=== PATIENT | male | born 1950 | race Caucasian/White ===

== ENCOUNTER 2022-08-31 18:07 | Inpatient (IN) | payer OTHER, SELFPAY ==
[2022-08-31] VITALS (24 sets, daily range): BP systolic 127–202; BP diastolic 64–91; PULSE 66–97; RESP 12–165; TEMP 36.6–36.7; O2SAT 93–99; BMI 26.6
--- NOTE | 2022-08-31 18:16 | DI.RAD.S_ITS ---
PROCEDURE: XR CHEST 1V INDICATIONS: chest pain TECHNIQUE: One view of the chest was acquired. COMPARISON: [facility], CT, CT HEAD/BRAIN WO CON, 08/31/2022, 18:22. FINDINGS: Surgical changes and devices: None. Lungs and pleura: On this semiupright portable chest examination, no large pneumothorax or large pleural effusions are seen. No focal infiltrates are seen. Mediastinum: Mediastinal contours appear normal. Heart size is normal. Bones and chest wall: No suspicious bony lesions. Age-appropriate bony degenerative changes are seen. Overlying soft tissues appear unremarkable. IMPRESSION: Portable chest within normal limits. Dictated by: Rey Ochoa M.D. on 08/31/2022 at 17:55 Approved by: Rey Ochoa M.D. on 08/31/2022 at 17:56
--- NOTE | 2022-08-31 18:17 | DI.CT.S_ITS ---
PROCEDURE: CT HEAD/BRAIN WO CON INDICATIONS: weakness TECHNIQUE: Noncontrast 4.5 mm thick angled axial sections acquired from the foramen magnum to the vertex, with coronal and sagittal reformats. For radiation dose reduction, the following was used: automated exposure control, adjustment of mA and/or kV according to patient size. COMPARISON: [facility], CR, XR CHEST 1V, 08/31/2022, 18:15. [facility], MR, MR BRAIN WO CON, 01/04/2015, 10:27. FINDINGS: Image quality: Excellent. CSF spaces: Basal cisterns are patent. No extra-axial fluid collections. The lateral ventricles are stable with ex vacuo dilatation of the right lateral ventricle. Brain: There is a remote right MCA territory infarction seen, with volume loss and encephalomalacia. No intracranial bleeds or masses. There is cerebral volume loss for age, with resultant ventricular and sulcal prominence. There are periventricular and deep white matter chronic small vessel ischemic changes. There is intracranial internal carotid artery atherosclerosis. Skull and face: Calvarium and visualized facial bones appear intact, without suspicious lesions. Sinuses: Scattered areas of moderate mucosal thickening can be seen within the paranasal sinuses. No abnormal fluid is seen within the mastoid air cells. IMPRESSION: No ale acute head CT abnormality is seen. There is a remote right MCA territory infarction seen, with volume loss and encephalomalacia, with associated ex vacuo dilatation of the right lateral ventricle. If there is strong clinical suspicion for an acute stroke, please consider a brain MRI for further evaluation, as it is more sensitive (assuming that there is no contraindication to MRI). Dictated by: Rey Ochoa M.D. on 08/31/2022 at 17:56 Approved by: Rey Ochoa M.D. on 08/31/2022 at 17:58
[2022-08-31 18:34] LABS: Add Manual Diff / Slide Review NO; Basophils Absolute Auto 100 /uL (0-100); Basophils Percent Auto 0.6 % (0-2); Eosinophils Absolute Auto 100 /uL (0-450); Eosinophils Percent Auto 1.2 % (2-4); Hematocrit 44.1 % (41-53); Lymphocytes Absolute Auto 2800 /uL (1100-4500); Lymphocytes Percent Auto 29.7 % (25-40); Mean Corpuscular HGB Conc 34.1 % (30-36); Mean Corpuscular Hemoglobin 30.3 PG (26-34); Mean Corpuscular Volume 88.8 fL (80-100); Monocytes Absolute Auto 1000 /uL (0-900); Monocytes Percent Auto 10.2 % (3-14); Neutrophils Absolute Auto 5500 /uL (1500-7000); Neutrophils Percent Auto 58.3 % (50-75); Platelet Count 226 X10^3/uL (150-400); Prothrombin Time 11.9 SECONDS (10.1-12.7); Red Blood Cell Count 4.97 X10^6/uL (4.5-5.9); Red Cell Distribution Width 14.3 % (11.6-14.8); White Blood Cell Count 9.3 X10^3/uL (4.5-11.0)
[2022-08-31 18:36] LABS: PTT Partial Thromboplastin Tim 37 SECONDS (26-36)
[2022-08-31 18:42] LABS: Alanine Aminotransferase 23 IU/L (<50); Albumin 4.7 g/dL (3.5-5.0); Albumin Globulin Ratio 1.6 (1.0-2.8); Alkaline Phosphatase 93 U/L (38-126); Aspartate Aminotransferase 54 IU/L (17-59); Bilirubin Total 0.6 mg/dL (0.2-1.3); Blood Urea Nitrogen 13 mg/dL (9-20); Calcium 9.1 mg/dL (8.4-10.2); Carbon Dioxide 19 mmol/L (22-32); Chloride 106 mmol/L (98-107); Creatine Kinase 195 U/L (55-170); Estimated Glomerular Filt Rate > 60 mL/min (>60); Glucose 88 mg/dL (80-110); HEMOLYSIS < 15 (0-50); Lipase 74 U/L (23-300); Potassium 3.6 mmol/L (3.4-5.1); Sodium 139 mmol/L (137-145); Total Protein 7.7 g/dL (6.3-8.2)
--- NOTE | 2022-08-31 18:44 | ED.WEAKNESS ---
HPI - Weakness General Chief complaint: Weakness Stated complaint: sudden onset weakness, unable to stand, weakness Time Seen by Provider: 08/31/22 18:44 Source: patient Mode of arrival: Wheelchair Limitations: no limitations History of Present Illness HPI Narrative: This is a 73-year-old male with history of prior stroke with left-sided hand and lower extremity deficits. Hypertension, dyslipidemia, known right bundle-branch block and PMR on prednisone 1 mg daily and prior prostatectomy in 2005. Patient states he started feeling weak in both legs little bit yesterday went to sleep and woke up with his right hand feeling numb little bit weak he states it never went away and has continued to not work quite as well throughout the day. He states he has been walking throughout the day but a little bit more tentative. He states he is noticed that he is just felt weak in both legs. He notes his right leg is his strong or dominantly after his stroke 20 years ago. He denies any numbness or tingling in that leg. Denies headache, denies vision changes. No facial droop. No difficulty with speech. No fevers or chills. No chest pain, shortness of breath, no nausea or vomiting no issues with bowel movements or urination. No vertigo symptoms. Patient states that he normally takes an aspirin 81 mg daily he had been decreased from 06/17 about a year ago by his physician. He took 650 mg total of aspirin today at noon. He is on lovastatin, lisinopril been on 1 mg of prednisone daily for the past month for his PMR. Patient does state he has a known 100% occluded right carotid. No tobacco, half alcoholic beer daily, no illicit. Patient's primary care just retired but he is seen through [facility] and [place]. Related Data Home Medications Medication Instructions Recorded Confirmed aspirin 325 mg tablet,delayed 325 mg PO QDAY #0 tabs 11/07/15 release lisinopril 5 mg tablet 5 mg PO QDAY #30 tabs 11/07/15 lovastatin 10 mg tablet 10 mg ##0 11/07/15 Previous Rx's Medication Instructions Recorded doxycycline hyclate 100 mg capsule 100 mg PO Q12H #20 caps 11/07/15 hydrocodone 5 mg-acetaminophen 325 0 tab PO Q6HP PRN #15 tabs 11/07/15 mg tablet Allergies Allergy/AdvReac Type Severity Reaction Status Date / Time Sulfa (Sulfonamide Allergy Mild Verified 08/31/22 18:19 Antibiotics) [SULFA (SULFONAMIDE ANTIBIOTICS)] terbinafine [TERBINAFINE] Allergy Mild Verified 08/31/22 18:19 Review of Systems Review of Systems ROS Unobtainable: All systems reviewed & are unremarkable except as noted in HPI and below Patient History Medical History (Updated 08/31/22 @ 21:23 by JASSON Silva) History of cerebrovascular accident (CVA) with residual deficit Hyperlipemia Hypertension PMR (polymyalgia rheumatica) Surgical History (Updated 08/31/22 @ 21:23 by JASSON Silva) History of prostatectomy Family History (Updated 08/31/22 @ 23:01 by JASSON Silva) Father Rheumatoid arthritis Mother Diabetes mellitus Social History (Updated 08/31/22 @ 23:02 by JASSON Silva) marital status: household members: spouse lives independently: Yes caregiver/support person: No housing: house current occupational exposures/hazards: No Smoking Status: Never smoker alcohol intake: current substance use type: does not use Smoking Status: Unknown if ever smoked alcohol intake frequency: holidays/special occasions only Substance Use Type: does not use Exam Narrative Exam Narrative: GEN: well nourished, well appearing male, alert and oriented x 3, patient appears to be in mild distress. HEENT: Atraumatic, pupils are equal round reactive to light, extraocular movements are intact, nares are clear. Throat is clear without any exudates, erythema, tonsillar enlargement or uvular deviation, no facial droop. HEART: Regular rate and rhythm without murmur, clicks, rubs. Pulses are equal in upper and lower extremities LUNGS:Lungs clear to auscultation, no wheezes, rales, crackles, chest moves symmetrically ABD:bowel sounds normal, soft, non-tender, no guarding, rebound, rigidity, no masses noted, no hepatosplenomegaly :No CVA tenderness MSCL: Non-tender, no muscle atrophy, full range of motion. Patient has some slight drift actually more in the left than the right patient states this is normal. I states he can only hold all his left fingers together. NEURO:CN 2-12 intact, sensation normal, finger nose finger test normal left slight mild difficulty on the right, heel martin test more difficult with right to left leg SKIN: No rash, erythema or other skin changes Initial Vital Signs Initial Vital Signs: Vital Signs Temperature 97.8 F 08/31/22 18:08 Pulse Rate 96 H 08/31/22 18:08 Respiratory Rate 165 H 08/31/22 18:08 Blood Pressure 202/91 H 08/31/22 18:08 Pulse Oximetry 98 08/31/22 18:08 Oxygen Delivery Method Room Air 08/31/22 18:08 Scores NIH Stroke Scale Level of Conciousness: Alert, keenly responsive Ask month/age: Answers both questions correctly. Open/close eyes, close hand: Performs both tasks correctly Best gaze horizontal: Normal Visual horn: No visual loss Facial palsy: Normal symetrical movement Left arm drift: Drifts down, not to bed Right arm drift: No drift for full 10 sec Left leg drift: No drift for full 5 sec Right leg drift: No drift for full 5 sec Limb ataxia: Present in two limbs Sensory on face/arms/legs: Normal, no sensory loss Best language: No aphasia, normal Dysarthria: Normal Extinction or inattention: No abnormality Total NIH Stroke scale score: 3 Course Orders Ordered: ED Orders 08/31/22 19:02 CT angio head and neck Stat 08/31/22 20:52 Consult to Discharge Planning Routine Consult to Occupational Therapy Evaluate & Treat Consult to Physical Therapy Evaluate & Treat Consult to Speech Therapy Evaluate & Treat MR stroke Stat Education, smoking cessation ONGOING 09/01/22 05:00 Basic Metabolic Panel DAILY Complete Blood Count AUTO DIFF DAILY 09/02/22 05:00 Basic Metabolic Panel DAILY Complete Blood Count AUTO DIFF DAILY Acetaminophen (Acetaminophen 325 Mg Tablet) 650 mg PO Q6H PRN PRN Reason: Fever/Mild Pain (1-3) Hydrocodone Bitart/Acetaminophen (Hydrocodone/Acet 5/325 Tablet) 1 tab PO Q4H PRN PRN Reason: Pain, Moderate (4-10 Aspirin (Aspirin Ec 81 Mg Tablet) 81 mg PO DAILY ZOE Atorvastatin Calcium (Atorvastatin 20 Mg Tablet) 80 mg PO BEDTIME ZOE Last Admin: 08/31/22 21:36 Dose: 80 mg Documented By: TEQUILA Calcium Carbonate (Calcium Carbonate 500 Mg Tab) 1,000 mg PO Q4HR PRN PRN Reason: Dyspepsia Clopidogrel Bisulfate (Clopidogrel 75 Mg Tablet) 75 mg PO DAILY [facility] Enoxaparin Sodium (Enoxaparin 40 Mg/0.4 Ml Syringe) 40 mg SUBCUT DAILY [facility] Labetalol HCl (Labetalol 20 Mg/4 Ml Syringe) 5 mg IV PRN PRN; Protocol PRN Reason: Hypertension Lisinopril (Lisinopril 5 Mg Tablet) 5 mg PO DAILY [facility] Naloxone HCl (Naloxone 0.4 Mg/Ml Vial) 0.2 mg IV Q2MIN PRN PRN Reason: Opiate Reversal Sennosides (Sennosides 8.6 Mg Tablet) 17.2 mg PO BEDTIME [facility] Discontinued Medications Labetalol HCl (Labetalol 20 Mg/4 Ml Syringe) 10 mg IV NOW ONE; Protocol Stop: 08/31/22 19:04 Last Admin: 08/31/22 19:14 Dose: 10 mg Documented By: TEQUILA Vital Signs Vital signs: Vital Signs - 8 hr 08/31/22 20:00 08/31/22 20:01 08/31/22 20:01 Pulse Rate 74 75 Respiratory Rate 17 23 Blood Pressure 171/81 H Pulse Oximetry 98 98 Oxygen Delivery Method Room Air Room Air 08/31/22 20:16 08/31/22 20:16 08/31/22 20:30 Pulse Rate 80 Respiratory Rate Blood Pressure 193/88 H 163/75 H Pulse Oximetry 97 Oxygen Delivery Method Room Air 08/31/22 20:30 08/31/22 20:30 08/31/22 20:45 Pulse Rate 73 97 H Respiratory Rate Blood Pressure 163/75 H 167/74 H Pulse Oximetry 97 Oxygen Delivery Method 08/31/22 20:45 Pulse Rate 66 Respiratory Rate 13 Blood Pressure Pulse Oximetry 97 Oxygen Delivery Method Room Air MDM - Weakness Lab Data 08/31/22 18:13 08/31/22 18:13 Labs: Lab Results 08/31/22 08/31/22 08/31/22 Range/Units 18:13 18:13 18:13 WBC 9.3 (4.5-11.0) X10^3/uL RBC 4.97 (4.5-5.9) X10^6/uL Hgb 15.0 (13.5-17.5) g/dL Hct 44.1 (41-53) % MCV 88.8 (80-100) fL MCH 30.3 (26-34) PG MCHC 34.1 (30-36) % RDW 14.3 (11.6-14.8) % Plt Count 226 (150-400) X10^3/uL Neut % (Auto) 58.3 (50-75) % Lymph % (Auto) 29.7 (25-40) % Douglas % (Auto) 10.2 (3-14) % Eos % (Auto) 1.2 L (2-4) % Baso % (Auto) 0.6 (0-2) % Neut # (Auto) 5500 (4206-8446) /uL Lymph # (Auto) 2800 (2043-7772) /uL Douglas # (Auto) 1000 H (0-900) /uL Eos # (Auto) 100 (0-450) /uL Baso # (Auto) 100 (0-100) /uL PT 11.9 (10.1-12.7) SECONDS INR 1.0 (0.9-1.3) APTT 37 H (26-36) SECONDS Sodium 139 (137-145) mmol/L Potassium 3.6 (3.4-5.1) mmol/L Chloride 106 (98-107) mmol/L Carbon Dioxide 19 L (22-32) mmol/L BUN 13 (9-20) mg/dL Creatinine 0.93 (0.66-1.25) mg/dL Estimated GFR > 60 (>60) mL/min BUN/Creatinine Ratio 14.0 (6-22) Glucose 88 (80-110) mg/dL Calcium 9.1 (8.4-10.2) mg/dL Magnesium 2.0 (1.6-2.3) mg/dL Total Bilirubin 0.6 (0.2-1.3) mg/dL AST 54 (17-59) IU/L ALT 23 (<50) IU/L Alkaline Phosphatase 93 (38-126) U/L Total Creatine Kinase 195 H (55-170) U/L CK-MB (CK-2) TNP CK-MB (CK-2) Rel Index TNP Troponin I < 0.012 (0.01-0.034) ng/mL NT-Pro-B Natriuret Pep (<125) pg/mL Total Protein 7.7 (6.3-8.2) g/dL Albumin 4.7 (3.5-5.0) g/dL Globulin 3.0 (1.7-4.1) g/dL Albumin/Globulin Ratio 1.6 (1.0-2.8) Lipase 74 (23-300) U/L TSH (0.47-4.68) uIU/mL 08/31/22 08/31/22 08/31/22 Range/Units 18:13 18:13 18:13 WBC (4.5-11.0) X10^3/uL RBC (4.5-5.9) X10^6/uL Hgb (13.5-17.5) g/dL Hct (41-53) % MCV (80-100) fL MCH (26-34) PG MCHC (30-36) % RDW (11.6-14.8) % Plt Count (150-400) X10^3/uL Neut % (Auto) (50-75) % Lymph % (Auto) (25-40) % Douglas % (Auto) (3-14) % Eos % (Auto) (2-4) % Baso % (Auto) (0-2) % Neut # (Auto) (7033-3711) /uL Lymph # (Auto) (2514-8278) /uL Douglas # (Auto) (0-900) /uL Eos # (Auto) (0-450) /uL Baso # (Auto) (0-100) /uL PT (10.1-12.7) SECONDS INR (0.9-1.3) APTT (26-36) SECONDS Sodium (137-145) mmol/L Potassium (3.4-5.1) mmol/L Chloride (98-107) mmol/L Carbon Dioxide (22-32) mmol/L BUN (9-20) mg/dL Creatinine (0.66-1.25) mg/dL Estimated GFR (>60) mL/min BUN/Creatinine Ratio (6-22) Glucose (80-110) mg/dL Calcium (8.4-10.2) mg/dL Magnesium 2.1 (1.6-2.3) mg/dL Total Bilirubin (0.2-1.3) mg/dL AST (17-59) IU/L ALT (<50) IU/L Alkaline Phosphatase (38-126) U/L Total Creatine Kinase (55-170) U/L CK-MB (CK-2) CK-MB (CK-2) Rel Index Troponin I (0.01-0.034) ng/mL NT-Pro-B Natriuret Pep 121 (<125) pg/mL Total Protein (6.3-8.2) g/dL Albumin (3.5-5.0) g/dL Globulin (1.7-4.1) g/dL Albumin/Globulin Ratio (1.0-2.8) Lipase (23-300) U/L TSH 2.24 (0.47-4.68) uIU/mL Point of Care Testing Glucose POC [address] scan - head: Radiologist Impression: [address] [address] [address] Scan Report Signed Patient: Joselyn Chandler MR#: [id number] : 1950 Acct:[id number] Age/Sex: 72 / M Date of Service: 08/31/22 Loc: ED Accession Number: [id number] ?? Procedure: CT head/brain wo con Ordering Provider: Keisha Figueroa D.O. PROCEDURE:? CT HEAD/BRAIN WO CON ? INDICATIONS:? weakness ? TECHNIQUE:? Noncontrast 4.5 mm thick angled axial sections acquired from the foramen magnum to the vertex, with coronal and sagittal reformats.? For radiation dose reduction, the following was used:? automated exposure control, adjustment of mA and/or kV according to patient size.? ? COMPARISON:? [facility], CR, XR CHEST 1V, 08/31/2022, 18:15.? [facility], MR, MR BRAIN WO CON, 01/04/2015, 10:27. ? FINDINGS:? Image quality:? Excellent.? ? CSF spaces:? Basal cisterns are patent.? No extra-axial fluid collections.? The lateral ventricles are stable with ex vacuo dilatation of the right lateral ventricle. ? Brain:? There is a remote right MCA territory infarction seen, with volume loss and encephalomalacia.? ? No intracranial bleeds or masses.? There is cerebral volume loss for age, with resultant ventricular and sulcal prominence.? There are periventricular and deep white matter chronic small vessel ischemic changes.? There is intracranial internal carotid artery atherosclerosis.? ? Skull and face:? Calvarium and visualized facial bones appear intact, without suspicious lesions.? ? Sinuses:? Scattered areas of moderate mucosal thickening can be seen within the paranasal sinuses. No abnormal fluid is seen within the mastoid air cells. ? ? IMPRESSION:? No ale acute head CT abnormality is seen. ? There is a remote right MCA territory infarction seen, with volume loss and encephalomalacia, with associated ex vacuo dilatation of the right lateral ventricle. ? If there is strong clinical suspicion for an acute stroke, please consider a brain MRI for further evaluation, as it is more sensitive (assuming that there is no contraindication to MRI). ? ? Dictated by: Rey Ochoa M.D. on 08/31/2022 at 17:56 ? ? Approved by: Rey Ochoa M.D. on 08/31/2022 at 17:58?? Chest x-ray: Radiologist Impression: [address] [address] XRay Report Signed Patient: Joselyn Chandler MR#: [id number] : 1950 Acct:[id number] Age/Sex: 72 / M Date of Service: 08/31/22 Loc: ED Accession Number: [id number] ?? Procedure: XR chest 1V Ordering Provider: Keisha Figueroa D.O. PROCEDURE:? XR CHEST 1V ? INDICATIONS:? chest pain ? TECHNIQUE:? One view of the chest was acquired.? ? COMPARISON:? [facility], CT, CT HEAD/BRAIN WO CON, 08/31/2022, 18:22. ? FINDINGS:? ? Surgical changes and devices:? None.? ? Lungs and pleura:? On this semiupright portable chest examination, no large pneumothorax or large pleural effusions are seen.? No focal infiltrates are seen.? ? Mediastinum:? Mediastinal contours appear normal.? Heart size is normal.? ? Bones and chest wall:? No suspicious bony lesions.? Age-appropriate bony degenerative changes are seen. ? Overlying soft tissues appear unremarkable.? IMPRESSION:? ? Portable chest within normal limits. ? ? ? Dictated by: Rey Ochoa M.D. on 08/31/2022 at 17:55 ? ? Approved by: Rey Ochoa M.D. on 08/31/2022 at 17:56?? CTA - brain/neck: Radiologist Impression: [address] [address] [address] Scan Report Signed Patient: Joselyn Chandler MR#: [id number] : 1950 Acct:[id number] Age/Sex: 72 / M Date of Service: 08/31/22 Loc: ED Accession Number: [id number] ?? Procedure: CT angio head and neck Ordering Provider: Keisha Figueroa D.O. PROCEDURE:? CT ANGIO HEAD AND NECK ? INDICATIONS:? new right arm weakness, leg weakness ? TECHNIQUE:? ? After the administration of intravenous contrast, 1 mm thick sections acquired from the aortic arch through the [place] of [place].? Post-contrast 4.5 mm thick sections then re-acquired from the foramen magnum to the vertex.? 3-dimensional tzxcdhr-fqagwtuku-gbuycswbgy (MIP) and/or volume rendering reformats were acquired of the central intracranial vasculature and neck separately. For radiation dose reduction, the following was used:? automated exposure control, adjustment of mA and/or kV according to patient size.? ? COMPARISON:? [facility], CT, CT HEAD/BRAIN WO CON, 08/31/2022, 18:22. ? FINDINGS:? Image quality:? Good ? Anterior circulation: ICAs:? There is occlusion of the right ICA, with reconstitution at the [id number].? There are atherosclerotic calcifications, [id number] in the cavernous segments. ACAs:? Patent.? The left SHARON slightly smaller than the right. MCAs:? The left MCA branches are patent where visualized in the proximal aspect.? The right MCA proximal regions are patent, but smaller than the left. AComm: No aneurysm Venous sinuses: patent ? Posterior circulation: Dominance: Equal Vertebral arteries:? Left vertebral calcifications, [id number]. Basilar artery: Unremarkable PComms: No aneurysm fireman helper: Unremarkable ? NECK ANGIOGRAPHY Aortic arch and subclavian arteries: Normal flow, no aneurysm. CCAs: No stenosis, occlusion, or aneurysm. ICA origins (by NASCET criteria): No hemodynamically significant narrowing.? There is about 50% narrowing at the left ICA origin. ICAs:? The right cervical ICA is occluded. ECAs: Origins are patent. Vertebral arteries:? Moderate narrowing of the right vertebral artery origin. ? Soft tissues: No significant mass, aneurysm, or lymphadenopathy Lung apices: No pneumothorax Bones:? Degenerative changes are present.? Postsurgical sinus changes. ? ? IMPRESSION:? The right ICA is occluded at the cervical segment.? There is reconstitution of contrast at the kfiyld-vk-Ewglze.? A 2015 MRA report mentions also right ICA occlusion at the level of the carotid bulb.? There is evidence of an old infarction in the right MCA territory.? The right MCA is smaller than the left, also likely chronic.? Consider MRI to evaluate for any acute components. ? Other findings as above. ? Any quantitative measurements of stenosis were performed using NASCET criteria.? ? ? Dictated by: Nico Olivares M.D. on 08/31/2022 at 19:55 ? ? Approved by: Nico Olivares M.D. on 08/31/2022 at 20:06?? ECG Data Attestation: I personally reviewed and interpreted this ECG as follows: Prior ECG tracings: not available for review Interpretation: In his rhythm frequent PVCs. Rate 85 [place] 182 QRS of 142 QTC of 504. Right bundle-branch block. No priors for comparison. Patient personally notes he has been told he has a right bundle-branch in the past. MDM Narrative Medical decision making narrative: This is a 72-year-old male who comes to the emergency department with complaint of did of weakness and right hand numbness. Patient states he started feeling weak yesterday but woke up with right hand numbness and weakness he also notes he is had a prior stroke with left-sided deficits his right lower extremity is typically dominant but he is felt weak in general and had difficulty with walking. Suspect patient is having right-sided symptoms but not appreciating as much in his lower extremity is its normally compensating for his left. Patient does have a little bit of left-sided drift we states this is normal. On the right patient has a little bit a taxi with his finger and heel. Patient's CBC, coags, CMP, troponin show a total CK 195 in his to of 19. Initial head CT shows prior right MCA infarct, chest x-ray is negative. Patient is sent for CT angio, he had aspirin 650 mg at home so no additional was given. One dose of labetalol as a pressure was in the 200 range. Patient is not tPA candidate. Plan for CT angio shows Right occluded cervical segment with reconstitution at contrast [place] of [place]. Right 24 MRI report mentions right ICA at the level of the carotid bulb. Evidence of old fracture of the right MCA territory. Right MCA smaller than left also likely chronic. Suspect new stroke new stroke likely on the left. Spoke with Dr. Corey with stroke [facility], recommends MRI, usual workup, PT OT if stroke high-intensity statin such as atorvastatin rosuvastatin at higher dose, at this time would allow for blood pressure to be 220 until after MRI to see if there is actual stroke if 220 or above systolic can treat. Discussed with hospitalist, ELIZ Maki: Accepts for admission. Discharge Plan Departure Patient Disposition: Admitted as Observation Clinical Impression: CVA (cerebrovascular accident) Admit Date/Time: 08/31/22 20:52 Admit Provider: Joleen Maki
[2022-08-31 18:53] LABS: Troponin I < 0.012 ng/mL (0.01-0.034)
--- NOTE | 2022-08-31 19:02 | DI.CT.S_ITS ---
PROCEDURE: CT ANGIO HEAD AND NECK INDICATIONS: new right arm weakness, leg weakness TECHNIQUE: After the administration of intravenous contrast, 1 mm thick sections acquired from the aortic arch through the [place] of [place]. Post-contrast 4.5 mm thick sections then re-acquired from the foramen magnum to the vertex. 3-dimensional gngpbyy-nxuwuuoow-voxdxdgoze (MIP) and/or volume rendering reformats were acquired of the central intracranial vasculature and neck separately. For radiation dose reduction, the following was used: automated exposure control, adjustment of mA and/or kV according to patient size. COMPARISON: [facility], CT, CT HEAD/BRAIN WO CON, 08/31/2022, 18:22. FINDINGS: Image quality: Good Anterior circulation: ICAs: There is occlusion of the right ICA, with reconstitution at the bqgxbg-ra-Mrkekm. There are atherosclerotic calcifications, picp-ha-zqffbzqr in the cavernous segments. ACAs: Patent. The left SHARON slightly smaller than the right. MCAs: The left MCA branches are patent where visualized in the proximal aspect. The right MCA proximal regions are patent, but smaller than the left. AComm: No aneurysm Venous sinuses: patent Posterior circulation: Dominance: Equal Vertebral arteries: Left vertebral calcifications, [id number]-ibrfyttp. Basilar artery: Unremarkable PComms: No aneurysm inspector fibrous wallboard: Unremarkable NECK ANGIOGRAPHY Aortic arch and subclavian arteries: Normal flow, no aneurysm. CCAs: No stenosis, occlusion, or aneurysm. ICA origins (by NASCET criteria): No hemodynamically significant narrowing. There is about 50% narrowing at the left ICA origin. ICAs: The right cervical ICA is occluded. ECAs: Origins are patent. Vertebral arteries: Moderate narrowing of the right vertebral artery origin. Soft tissues: No significant mass, aneurysm, or lymphadenopathy Lung apices: No pneumothorax Bones: Degenerative changes are present. Postsurgical sinus changes. IMPRESSION: The right ICA is occluded at the cervical segment. There is reconstitution of contrast at the lkunfe-ea-Huwohx. A 2015 MRA report mentions also right ICA occlusion at the level of the carotid bulb. There is evidence of an old infarction in the right MCA territory. The right MCA is smaller than the left, also likely chronic. Consider MRI to evaluate for any acute components. Other findings as above. Any quantitative measurements of stenosis were performed using NASCET criteria. Dictated by: Nico Olivares M.D. on 08/31/2022 at 19:55 Approved by: Nico Olivares M.D. on 08/31/2022 at 20:06
[2022-08-31] MEDS: LABETALOL 20 MG/4 ML SYRINGE 10 MG IV (19:14)
--- NOTE | 2022-08-31 20:52 | DI.MRI.S_ITS ---
PROCEDURE: MR HEAD/BRAIN WO CON INDICATIONS: CVA TECHNIQUE: Non-contrast axial T1 spin echo, axial T2 fast spin echo, sagittal and axial FLAIR, coronal T2 fast spin echo, axial gradient echo, axial diffusion and ADC through the brain. COMPARISON: [facility], MR, MR ANGIO NECK W&WO CON, 01/11/2015, 7:06. [facility], MR, MR BRAIN WO CON, 01/04/2015, 10:27. [facility], MR, MR ANGIO HEAD WO CON, 01/04/2015, 10:27. [facility], CT, CT ANGIO HEAD AND NECK, 08/31/2022, 19:23. [facility], CT, CT HEAD/BRAIN WO CON, 08/31/2022, 18:22. FINDINGS: Image quality: Excellent. CSF spaces: Ventricles appear symmetric in size and shape. Basal cisterns are patent. No extra-axial fluid collections. Brain: Large area of old cerebral infarct in the right parietal lobe with encephalomalacia, gliosis and ex vacuo change. No intracranial bleeds or mass effects. There is cerebral volume loss for age. There are periventricular and deep white matter chronic small vessel ischemic changes. Brainstem appears normal. Diffusion-weighted images show no acute ischemic insults. There is absence of flow void in the right distal ICA consistent with occlusion, which was present on the prior exam. Skull and face: Calvarial bone marrow is normal in signal. Orbits are normal. Sinuses: Sinuses and mastoids are clear. IMPRESSION: 1. No acute intracranial abnormality. No findings to suggest acute cerebral ischemia. 2. Old right parietal infarct. 3. Chronic distal right ICA occlusion. Dictated by: Yariel Still M.D. on 09/01/2022 at 8:40 Approved by: Yariel Still M.D. on 09/01/2022 at 8:48
--- NOTE | 2022-08-31 20:59 | DI.ECHO.S_ITS ---
[facility] +---------+ : : [address] : : : : [id number] : : : : Phone: [phone]+ Echocardiogram Report + + :Name: YASSINE LOPEZ Study Date: 09/01/2022 Height: 68 in : :[facility] ReadingLocation: Weight: 175 lb : : Gender: Male BSA: 1.9 m2 : :: 1950 Age: 72 yrs BP: 129/58 mmHg: :Reason For Study: CVA : :Ordering Physician: Glynn, : :Sonia Performed By: Marielle Rossi : :Referring: SONIA HUGHES : + + Interpretation Summary Normal sinus rhythm with wide QRS complexes and frequent PVCs. Normal LV size and moderate concentric left ventricular hypertrophy. Normal wall motion and LV systolic function. Ejection fraction is 60-65%. Mildly thickened mitral valve leaflets and aortic valve leaflets. No significant regurgitation or stenosis. No evidence of PFO bsaed on color flow Doppler. Bubble study was not done. No source of embolism found. Procedure: A two-dimensional transthoracic echocardiogram with color flow and Doppler was performed. The study quality was technically adequate. There is no prior echocardiogram noted for this patient. The patient was in normal sinus rhythm during the exam. The patient had frequent PVCs during the exam. Left Ventricle: The left ventricle is normal in size. The ejection fraction is estimated to be 55-60%. Diastolic parameters suggest a relaxation abnormality of the left ventricle, consistent with probable normal filling pressures. Right Ventricle: The right ventricle is mildly dilated. The right ventricular systolic function is normal. Atria: The left atrial size is normal. Right atrial size is normal. There is no Doppler evidence for an interatrial shunt. Mitral Valve: The mitral valve is normal. There is no mitral valve stenosis. There is trace mitral regurgitation. Aortic Valve: The aortic valve is trileaflet. The aortic valve opens well. There is mild aortic valve sclerosis. There is no aortic valve stenosis. There is trace aortic regurgitation. Tricuspid Valve: The tricuspid valve is normal. There is no tricuspid stenosis. There is trace tricuspid regurgitation. Pulmonary artery pressures cannot be estimated because of the lack of a measurable TR jet velocity. Pulmonic Valve: The pulmonic valve leaflets are thin and pliable; valve motion is normal. There is no pulmonic valvular stenosis. There is trace pulmonic regurgitation. Great Vessels: The aortic root is normal size. The ascending aorta is normal in size. The pulmonary artery is normal size. The IVC is of normal diameter and collapses greater than 50% with a sniff. This suggests a low right atrial pressure of 3 mm Hg. Pericardium/ Pleura There is no pericardial effusion. There is no pleural effusion. MMode/2D Measurements & Calculations LVIDd: 4.5 cm LVOT diam: 1.9 cm LVIDs: 2.8 cm Ao root diam: 3.6 cm FS: 37.8 % asc Aorta Diam: 3.5 cm IVSd: 1.1 cm LVPWd: 1.4 cm LV naranjo. diameter/BSA (cm/m^2): 2.3 LV sys. diameter/BSA (cm/m^2): 1.4 LA A2 area: 18.0 cm2 RA long axis: 5.7 cm LA A4 area: 13.4 cm2 RA area: 14.9 cm2 LA length (vol): 5.2 cm RA vol: 32.8 ml LA vol: 39.1 ml RA : 17.0 ml/m2 LA vol index: 20.3 ml/m2 RVD1 (basal): 4.1 cm LVLs ap4: 5.4 cm LVLd ap2: 7.2 cm TAPSE_phl: 2.8 cm LVLs ap2: 5.7 cm Doppler Measurements & Calculations Ao V2 max: 142.5 cm/sec LVOT Max Fabio: 100.7 cm/sec Ao V2 mean: 102.5 cm/sec LV V1 max P.1 mmHg Ao max P.0 mmHg LV V1 VTI: 20.9 cm Ao mean P.0 mmHg SARAH(I,D): 1.8 cm2 Ao V2 VTI: 33.4 cm SARAH(V,D): 2.0 cm2 sev ratio: 0.63 SARAH indexed to BSA (cm^2/m^2): 0.92 MV E max fabio: 59.1 cm/sec PA V2 max: 100.0 cm/sec MV A max fabio: 84.8 cm/sec PA V2 mean: 66.6 cm/sec MV E/A: 0.70 PA mean P.0 mmHg Med Peak E' Fabio: 5.1 cm/sec PA pr(Accel): 37.6 mmHg E/E' med: 11.5 Lat Peak E' Fabio: 7.2 cm/sec E/E' lat: 8.3 E/e' average: 9.9 MV dec time: 0.23 sec SV(LVOT): 59.3 ml AV VR_phl: 0.71 SARAH(VTI)/BSA_phl: 0.92 Electronically signed by: Adriana Marsh M.D. on Reading Physician:09/01/2022 08:44 AM
--- NOTE | 2022-08-31 21:09 | P.HP_ITS ---
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 ?He denies any numbness or tingling in that leg, headache, denies vision changes, difficulty with swallowing.? No facial droop noted.? No difficulty with speech.? No fevers, body aches or chills, chest pain, shortness of breath, irregular heartbeats or palpitations, lower extremity edema, nausea, vomiting, abd pain, no issues with bowel movements or urination, vertigo symptoms, no recent illness injury or trauma. Patient reports that he is not had an echo/stess test more than 10 years, and last neck MRI/carotid Doppler was approximately 3 years ago. Patient states that he normally takes an aspirin 81 mg, lovastatin 10 mg, lisinopril 5 mg prednisone 1 mg. He took 650 mg total of aspirin today at noon. No tobacco, half alcoholic beer daily, no illicit.? Patient's primary care just retired but he is seen through [facility] and [place].? Patient initially presented to the ED PE 202/91 was given 10 mg labetalol area. Patient was evaluated by tele stroke recommended permissive SBP up too 220, pigment was not a candidate for tPA. On admit patient notes that right hand numbness/tingling continues BP 163/75, 97, 23, 97% on room air. Patient's laboratory findings are unremarkable the exception of bicarb 19, CK 195, initial troponin was negative. Chest x-ray n egative, EKG rate of 85 with a right bundle-branch block and frequent PVCs. Head CT no ale acute abnormalities it did demonstrate remote right MCA territorial infarct with volume loss and encephalomalacia, with associated ex vaco dilation of right lateral ventricle. And CTA H/N:The right ICA is occluded at the cervical segment.?Reconstitution of contrast at the ounfyo-fs-Pmlnel.? A 2015 MRA report mentions also right ICA occlusion at the level of the carotid bulb.? There is evidence of an old infarction in the right MCA territory.? The right MCA is smaller than the left, also likely chronic. Patient is admitted for observation for CVA. [facility] Medical History (Updated 08/31/22 @ 21:23 by JASSON Silva) History of cerebrovascular accident (CVA) with residual deficit Hyperlipemia Hypertension PMR (polymyalgia rheumatica) Surgical History (Updated 08/31/22 @ 21:23 by SPENCER Silva-VADIM) History of prostatectomy Family History (Updated 08/31/22 @ 23:01 by JASSON Silva) Father Rheumatoid arthritis Mother Diabetes mellitus Social History (Updated 08/31/22 @ 23:02 by JASSON Silva) marital status: household members: spouse lives independently: Yes caregiver/support person: No housing: house current occupational exposures/hazards: No Smoking Status: Never smoker alcohol intake: current substance use type: does not use Meds Home Medications and Allergies Home Medications Medication Instructions Recorded Confirmed Type aspirin 325 mg tablet,delayed 325 mg PO QDAY #0 tabs 11/07/15 History release doxycycline hyclate 100 mg capsule 100 mg PO Q12H #20 caps 11/07/15 Rx hydrocodone 5 mg-acetaminophen 325 0 tab PO Q6HP PRN #15 tabs 11/07/15 Rx mg tablet lisinopril 5 mg tablet 5 mg PO QDAY #30 tabs 11/07/15 History lovastatin 10 mg tablet 10 mg ##0 11/07/15 History Allergies Allergy/AdvReac Type Severity Reaction Status Date / Time Sulfa (Sulfonamide Allergy Mild Verified 08/31/22 18:19 Antibiotics) [SULFA (SULFONAMIDE ANTIBIOTICS)] terbinafine [TERBINAFINE] Allergy Mild Verified 08/31/22 18:19 Review of Systems Review of Systems Narrative: All 12 point systems reviewed with the patient and are negative except otherwise documented. Exam Vital Signs (past 8 hours): - 08/31/22 18:08 08/31/22 18:13 08/31/22 18:14 Temperature 97.8 F Pulse Rate 96 H 95 H 96 H Respiratory Rate 165 H Blood Pressure 202/91 H Pulse Oximetry 98 99 98 Oxygen Delivery Method Room Air Room Air Room Air 06/08/23 18:14 08/31/22 18:30 08/31/22 19:00 Temperature Pulse Rate 85 88 Respiratory Rate 29 H Blood Pressure 202/91 H Pulse Oximetry 96 93 Oxygen Delivery Method Room Air 08/31/22 19:07 08/31/22 19:07 08/31/22 19:16 Temperature Pulse Rate 82 86 Respiratory Rate 26 H 20 Blood Pressure 183/79 H Pulse Oximetry 98 98 Oxygen Delivery Method Room Air Room Air 08/31/22 19:16 08/31/22 19:24 08/31/22 19:24 Temperature Pulse Rate 74 Respiratory Rate 22 Blood Pressure 192/88 H 167/72 H Pulse Oximetry 97 Oxygen Delivery Method Room Air 08/31/22 19:37 08/31/22 19:43 08/31/22 19:43 Temperature Pulse Rate 79 74 Respiratory Rate Blood Pressure 178/84 H Pulse Oximetry 97 98 Oxygen Delivery Method Room Air Room Air 08/31/22 19:45 08/31/22 19:45 08/31/22 20:00 Temperature Pulse Rate 73 74 Respiratory Rate 18 17 Blood Pressure 168/83 H Pulse Oximetry 98 98 Oxygen Delivery Method Room Air Room Air 08/31/22 20:01 08/31/22 20:01 08/31/22 20:16 Temperature Pulse Rate 75 Respiratory Rate 23 Blood Pressure 171/81 H 193/88 H Pulse Oximetry 98 Oxygen Delivery Method Room Air 08/31/22 20:16 08/31/22 20:30 08/31/22 20:30 Temperature Pulse Rate 80 73 Respiratory Rate Blood Pressure 163/75 H Pulse Oximetry 97 97 Oxygen Delivery Method Room Air 08/31/22 20:30 Temperature Pulse Rate 97 H Respiratory Rate Blood Pressure 163/75 H Pulse Oximetry Oxygen Delivery Method Oxygen Delivery Method Room Air Narrative Exam Narrative: General: Patient is a well-developed, well-nourished in no distress at this time. HEENT: Normocephalic, atraumatic, extraocular muscles intact, oral pharynx is clear and mucous membranes are moist. Neck is supple and symmetric, trachea is midline, no adenopathy, no thyroid enlargement, nontender, no masses palpated. Negative for JVD Chest: Normal AP diameter and contour without kyphoscoliosis, no nasal flaring, retractions, ,tachypneic or labored breathing Lungs: Auscultation of all lung horn are clear without adventitious sounds, wheezes, rhonchi, or rales. Cardio: regular rate and rhythm without murmur, rubs, or gallops, no carotid bruit, no cardiac pulsations present. Abdomen: Soft nontender, negative for organomegaly, or masses. Bowel sounds are present in all 4 quadrants without guarding or rebound, no CVA tenderness. Musculoskeletal: tone are equal within normal limits, no deformity, crepitus, effusions, clubbing or edema present. Full range of motion intact radial and pedal pulses are normal. Skin: Warm dry and intact without rashes, ulcerations or petechiae. Noted urethral cyanotic of 2nd toe on right foot, good capillary refill, chronic-no changes. Neuro: Alert and orientated x3, moves all extremities, sensation to touch intact, no gross deficits noted of cranial nerves. NIH 3: Right finger/heel, limb ataxia x2, left arm drift down without hitting bed. Psych: Patient has a well-kept appearance, appropriate affect, mental status attitude thought context and judgment are appropriate for age. Objective Labs 08/31/22 18:13 08/31/22 18:13 Labs: Laboratory Results - last 24 hr 08/31/22 08/31/22 08/31/22 18:13 18:13 18:13 WBC 9.3 RBC 4.97 Hgb 15.0 Hct 44.1 MCV 88.8 MCH 30.3 MCHC 34.1 RDW 14.3 Plt Count 226 Neut % (Auto) 58.3 Lymph % (Auto) 29.7 Armstrong % (Auto) 10.2 Eos % (Auto) 1.2 L Baso % (Auto) 0.6 Neut # (Auto) 5500 Lymph # (Auto) 2800 Armstrong # (Auto) 1000 H Eos # (Auto) 100 Baso # (Auto) 100 PT 11.9 INR 1.0 APTT 37 H Sodium 139 Potassium 3.6 Chloride 106 Carbon Dioxide 19 L BUN 13 Creatinine 0.93 Estimated GFR > 60 BUN/Creatinine Ratio 14.0 Glucose 88 Calcium 9.1 Magnesium 2.0 Total Bilirubin 0.6 AST 54 ALT 23 Alkaline Phosphatase 93 Total Creatine Kinase 195 H CK-MB (CK-2) TNP CK-MB (CK-2) Rel Index TNP Troponin I < 0.012 Total Protein 7.7 Albumin 4.7 Globulin 3.0 Albumin/Globulin Ratio 1.6 Lipase 74 Assessment & Plan Assessment & Plan narrative: Joselyn Chandler is a 72 year old male with history of CVA with left-hand and lower extremity deficit 20 years ago, HTN, HLD, RtBBB, RT carotid occulsion, PMR who is being admitted for observation for likely new CVA. And being brought in for stroke evaluation, brain MRI, bilateral carotid Doppler, and echo. CVA, acute, present on admission * NIH:3 (Right finger/heel, limb ataxia x2, left arm drift down without hitting bed) * Known history of right carotid occlusion- last MRI/Carotid doppler 3 yrs ago * Head neck CTA/head CT are negative for acute changes * MRI/bilateral carotid Doppler-tomorrow * NIH: 3 (right finger and heel limb ataxia, left arm drift) * Swallow precautions, aspiration precautions, NIH, neuro checks as needed * Tele stroke consult in ED * Goal permissive systolic blood pressure less than 220-labetalol 5 mg IV ordered prn * Holding patient's lovastatin changed to 80 mg Lipitor * Plavix, ASA, Lipitor * Check troponin, TSH, A1c, BNP, lipids * Echo ordered- last >10yrs Hypertensive urgency in the setting of essential hypertension, acute on chronic, present on admission * 202/, has resolved 163/75 * Known history of right BBB * Goal permissive systolic blood pressure less than 220-labetalol 5 mg IV ordered prn * Continue lisinopril may need to increase dosage if b/p continues to be elevated * Echo ordered Hyperlipidemia, chronic, present on admission * Stopping lovastatin 10 mg changing to Lipitor 80 mg per tele stroke recommendation * Lipids ordered History of CVA with left-sided deficit, chronic, present on admission * Polymyalgia rheumatica, chronic, present on admission * Continue prednisone Code status:Full Surrogate decision maker: Shila DVT/VTE prophylaxis: Lovenox and SCDs Disposition: Patient's length of stay not expected to exceed 2 midnights. I have utilized all available immediate resources to obtain, update, or review the patient's current medications. I confirmed that the patient's advanced care plan is present, Code status is documented and/or surrogate decision maker is listed in the patient's medical record. I have personally reviewed patient's chart notes from PCP, specialists, diagnostic imaging, and laboratory results.
[2022-08-31 21:25] LABS: Magnesium 2.1 mg/dL (1.6-2.3)
[2022-08-31] MEDS: ATORVASTATIN 20 MG TABLET 80 MG PO (21:36)
[2022-08-31 21:47] LABS: Appearance Urine UA CLEAR; Bilirubin Urine UA NEGATIVE (NEGATIVE); Color Urine UA YELLOW; Glucose Urine UA NEGATIVE (Negative); Ketones Urine UA NEGATIVE (NEGATIVE); Leukocyte Esterase Urine UA NEGATIVE (NEGATIVE); Nitrite Urine UA NEGATIVE (Negative); Occult Blood Urine UA NEGATIVE (Negative); Protein Urine UA NEGATIVE (Negative); Urobilinogen Urine UA 0.2 E.U./dL (0.2); pH Urine UA 5.5 (4.5-8.0)
[2022-08-31 21:51] LABS: NT-proBNP (BNP-Adult 18+) 121 pg/mL (<125)
[2022-08-31 21:53] LABS: Bacteria Urine None Seen; RBC Urine None Seen (0-5/HPF); WBC Urine None Seen (0-5/HPF)
[2022-08-31 21:54] LABS: Culture Indicated Urine Cult Not Indicated; Squamous Epithelial Cell Urine 0-1 /HPF (0-5/HPF); Urine Comments Microscopic Normal
[2022-08-31 22:13] LABS: Thyroid Stimulating Hormone 2.24 uIU/mL (0.47-4.68)
[2022-09-01 04:30] VITALS: BP 129/58; PULSE 76; RESP 19; TEMP 36.3; O2SAT 96
[2022-09-01 05:39] LABS: Add Manual Diff / Slide Review NO; Basophils Absolute Auto 0 /uL (0-100); Basophils Percent Auto 0.4 % (0-2); Eosinophils Absolute Auto 100 /uL (0-450); Eosinophils Percent Auto 1.9 % (2-4); Hematocrit 41.6 % (41-53); Hemoglobin 14.3 g/dL (13.5-17.5); Lymphocytes Absolute Auto 2100 /uL (1100-4500); Lymphocytes Percent Auto 28.8 % (25-40); Mean Corpuscular HGB Conc 34.3 % (30-36); Mean Corpuscular Hemoglobin 30.5 PG (26-34); Mean Corpuscular Volume 88.7 fL (80-100); Monocytes Absolute Auto 600 /uL (0-900); Monocytes Percent Auto 7.9 % (3-14); Neutrophils Absolute Auto 4400 /uL (1500-7000); Platelet Count 209 X10^3/uL (150-400); Red Blood Cell Count 4.69 X10^6/uL (4.5-5.9); Red Cell Distribution Width 14.7 % (11.6-14.8); White Blood Cell Count 7.3 X10^3/uL (4.5-11.0)
[2022-09-01 05:41] LABS: INR 1.1 (0.9-1.3)
[2022-09-01 05:46] LABS: BUN Creatinine Ratio 15.7 (6-22); Blood Urea Nitrogen 14 mg/dL (9-20); Calcium 8.6 mg/dL (8.4-10.2); Carbon Dioxide 23 mmol/L (22-32); Chloride 107 mmol/L (98-107); Estimated Glomerular Filt Rate > 60 mL/min (>60); Glucose 117 mg/dL (80-110); HEMOLYSIS 24 (0-50); Potassium 3.3 mmol/L (3.4-5.1); Sodium 137 mmol/L (137-145)
[2022-09-01 05:58] LABS: Troponin I < 0.012 ng/mL (0.01-0.034)
[2022-09-01] MEDS: POTASSIUM CHLORIDE 20 MEQ TAB 40 MEQ PO (07:55)
--- NOTE | 2022-09-01 08:07 | PC.NURSE ---
Patient is alert and oriented x4. He states that he has some left sided weakness to his left side from a CVA 28 years ago. His r.arm and leg seem to be weaker this hospital visit. He is unable to lift his r.leg up. NIH is a 2. Vision and speech wnl and smile is symmetrical. Patient just given some oral potassium and is now down stairs getting his MRI. He denies pain or discomfort. He is discouraged as he is affraid that he had another CVA.
[2022-09-01 09:00] VITALS: BP 162/90; PULSE 73; RESP 16; TEMP 36.4; O2SAT 97
[2022-09-01] MEDS: CLOPIDOGREL 75 MG TABLET PO (09:05)
[2022-09-01] MEDS: ASPIRIN EC 81 MG TABLET PO (09:05)
[2022-09-01] MEDS: lisinopriL 5 MG TABLET PO (09:05)
[2022-09-01] MEDS: ENOXAPARIN 40 MG/0.4 ML SYRINGE SUBCUT (09:05)
--- NOTE | 2022-09-01 09:50 | OT.IP.EVAL ---
Past Medical History (Last Updated 08/31/22 @ 21:23 by Joleen Maki [facility]) History of cerebrovascular accident (CVA) with residual deficit Hyperlipemia Hypertension PMR (polymyalgia rheumatica) Surgical History (Last Updated 08/31/22 @ 21:23 by Joleen Maki [facility]) History of prostatectomy Occupational Therapy Inpatient Evaluation/Re-Eval M1 PT/OT-IP Prior Functional Status Start: 09/01/22 11:03 Freq: NEEDED Status: Active Protocol: Document 09/01/22 11:03 CGR (Rec: 09/01/22 11:28 CGR [id number]) Medical Review Prior Functional Status Medical History Reviewed Yes Communication Pt is an effective verbal communicator. Mobility and Gait Pt was IND in all mobility without AD at baseline. 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 Social History Household Members spouse Living Arrangements House Number of Floors (Floors) Two Floors Number of Stairs To Enter/Railing? Pt has 1 step to enter and then can stay on the main level of his home. Home Environment Standard Height Toilet,Walk in Shower Employment Status Retired Additional Social History Comment Pt has no DME and has a flat bed. M2 OT-IP Current Condition Start: 09/01/22 11:03 Freq: Status: Active Protocol: Document 09/01/22 11:03 CGR (Rec: 09/01/22 11:28 CGR [id number]) Occupational Therapy Current Condition Current Condition Evaluation Date 09/01/22 Treatment Diagnosis New onset R weakness, hx cva with L deficits Diagnosis Onset Date 08/31/22 M3 OT- IP Subjective and Pain Start: 09/01/22 11:03 Freq: Status: Active Protocol: Document 09/01/22 11:03 CGR (Rec: 09/01/22 11:28 CGR [id number]) OT- Subjective Occupational Therapy Visit Type Type Initial Evaluation Visit Start Time 09:18 Visit Stop Time 09:50 Total Visit Minutes 32 OT Pain Assessment Pain When Pain Assessed At Rest Pain Present Pain Present Denied Pain M4 OT- IP ADL's Start: 09/01/22 11:03 Freq: Status: Active Protocol: Document 09/01/22 11:03 CGR (Rec: 09/01/22 11:28 CGR [id number]) OT [id number] General Evaluation Self-Feeding Ability Maximum Assistance Comments OT Self-Feeding Comments Per pt and aide, pt needed assist with eating as he was unable to hold the thin fork. Called the kitchen and requested built up handles for future meals. OT ADL-Grooming Comments OT Grooming Comments not performed OT ADL-Oral Care Comments Oral Care Comments not performed OT ADL-Dressing General Eval Lower Body Dressing Ability Total Assistance Areas Needing Assistance Socks OT ADL-Toileting General Evaluation Toileting Ability Total Assistance Comments OT Toileting Comments crespo OT ADL-Bathing Comments OT Bathing Comments not performed M5 OT- IP IADL's Start: 09/01/22 11:03 Freq: Status: Active Protocol: Document 09/01/22 11:03 CGR (Rec: 09/01/22 11:28 R [id number]) OT-Instrumental Activities of Daily Living Deficits IADL Deficits Identified No Deficits Home Safety Awareness Awareness of Need for Assistance at Home Good Awareness Ability to Problem Solve Emergency Able to Problem Solve Situations Medication Management Medication Management Comments concerns regarding pt's abilities at this time Money Management Money Management Comments concerns regarding pt's abilities at this time Meal Preparation Meal Preparation Comments concerns regarding pt's abilities at this time Fashion Designer Fashion Designer Comments concerns regarding pt's abilities at this time Driving Driving Comments concerns regarding pt's abilities at this time M6 OT- IP Functional Cognition Start: 09/01/22 11:03 Freq: Status: Active Protocol: Document 09/01/22 11:03 CGR (Rec: 09/01/22 11:28 R [id number]) Cognitive Factors Limiting Selfcare Function Cognitive Ability Level of Alertness Alert Patient Orientation Name,Age,Birthday,Month,Date, Year,Day of Week,Place, Situation Attention Span Ability Capable of Focused Attention, Capable of Sustained Attention Ability to Follow Commands Able to Follow Multi-Step Commands OT- Vision and Hearing OT- Hearing Assessment OT- Hearing Assessment WFL OT- Vision Assessment Visual Acuity Glasses All The Time Visual Attentiveness WFL Occular Pursuits WFL M7 OT- IP Mobility and Balance Start: 09/01/22 11:03 Freq: Status: Active Protocol: Document 09/01/22 11:03 CGR (Rec: 09/01/22 11:28 R [id number]) OT- Bed Mobility Assessment Rolling Type of Rolling Roll to Right Level of Assistance Minimal Assistance Supine to Sit Supine to Sit Assist Maximum Assistance Sit to Supine Sit to Supine Assist Maximum Assistance Scooting Scooting to Edge of Bed Maximum Assistance OT-Transfer Assessment Sit to and From Stand Sit to and from Stand 1 Person Assistance Comments Mobility Comments Attempted sit to stand from sitting EOB without sucess. Pt was unable to raise buttox from bed with 1 person assist OT- Gait Assessment Comments Gait Ability Comments did not occur OT- Balance Assessment Sitting Balance and Reactions Static Sitting Balance Ability Good Dynamic Sitting Balance Ability Good M8 OT- IP Objective Assessments Start: 09/01/22 11:03 Freq: Status: Active Protocol: Document 09/01/22 11:03 CGR (Rec: 09/01/22 11:28 CGR [id number]) OT Gross Range of Motion Upper Extremity Range of Motion Assessment Within Functional Limits ROM Impairments AROM limited but PROM WFL OT Strength Comments Strength Comments grossly 3 to 3+/5 with L side being slightly stronger than right. OT- Coordination Assessment Upper Extremity Finger to Nose Test Bilateral UE Impaired Finger Tapping Test Bilateral UE Impaired OT-Muscle Tone Assessment Muscle Tone WNL Yes OT Sensation Assessment Comments Summary Comments Pt states numbness and tingling to L hand(typical for pt), R hand and R foot/ankle (new for patient). Edema Edema Absent M9 OT- IP Assessment and Plan Start: 09/01/22 11:03 Freq: Status: Active Protocol: Document 09/01/22 11:03 CGR (Rec: 09/01/22 11:28 CGR [id number]) OT Summary Assessment and Plan Potential Rehabilitation Potential Excellent Analytic Complexity at Evaluation High Summary OT Impairments Strength,Balance,Coordination, Sensation,Functional Mobility, Self-Feeding,Grooming,Dressing ,Toileting,Bathing,Toilet Transfers,Shower Transfers, Activity Tolerance Progress Towards Goals Progressing Toward Goals Assessment Summary Pt presents as a high complexity evaluation s/p admit for likely CVA. Pt has a hx of CVA with L sided deficits and now with R weakness, numbness, and tingling. Pt was able to participate in OT eval but with limited abilities, however, with maximal effort. Pt will benefit from acute rehab services upon discharge. His endurance is adequate for 3+ hours of therapy a day and pt is highly motivated. Goals Self-Feeding Goal Independent Grooming Goal Independent Dressing Goal Independent Toileting Goal Independent Bathing Goal Independent Toilet Transfer Goal Independent Shower Transfer Goal Independent Days to Meet Goals 30 Frequency of Treatment Frequency Of Treatment Once a Day Treatment Plan OT Treatment Plan ADL Training,Functional Mobility,Neuromuscular Re- education,Therapeutic Exercises,Patient/Family Education,Discharge Planning Other Treatment Recommendations and Next Transfers, ADLs seated Treatment Focus Discharge Recommendations OT Discharge Recommendations Acute Rehab Transportation Needs at Discharge Wheelchair/Cabulance
--- NOTE | 2022-09-01 10:51 | CM.DANOTE ---
Addendum entered by Viky Castelan R.N. 09/01/22 15:33: Keven from [facility] also called back, can accept patient if [place] auth is obtained. Confirmed that they are in [place] network. Spoke to Sunday at [facility], they are also in network. Sunday will also confirm acceptance, once confirmed, can contact [place]. Addendum entered by Viky Castelan R.N. 09/01/22 14:55: P.T. note completed, ROSA Lozada paperhanger assistant, is faxing over notes to [facility], [facility], and [place]. Original Note: DCP: Case received, EMR reviewed and met with patient. Introduced self and role. Was able to obtain information regarding patient's baseline activity level prior to hospitalization. DCP assessment completed with information currently available. Patient is a 72 year old male who admitted yesterday evening to the care of the hospitalist team. PCP: [facility], used to see Dr. Soto, recently retired. Payer: confirmed: [facility]. Patient came to the hospital via private vehicle secondary to having weakness. Patient indicated went to sleep, woke up with his right hand feeling numb, feeling weak in both legs. Patient has history of prior stroke with left-sided hand and lower extremity deficits. Patient is having MRI today to rule out CVA. Met with patient in his room. He is alert and oriented, laying in bed. O.T. had already seen patient, recommending inpatient acute rehab. Barrier is that in many cases, [place] may not auth for inpatient acute rehab, the [place] provider will need to review first. Spoke to Maria Esther Heller, [place] skilled nursing case manager, and confirmed that the inpatient acute rehab needs to review first, then, their doctor will review as well. Let her know that as soon as therapy notes are in, will send them. Patient is new on their case load, they have not yet received clinicals as well. Gave Maria Esther patient's name to watch for. Confirmed with patient that he is independent at baseline, resides in [place] with spouse, Shila. His primary care provider at [facility], Dr. Soto, retired, can't remember the name of the provider that they assigned him to. He is open to inpatient acute rehab, would rather go to [facility] versus [facility], since it's close to home, but knows that it will depend upon bed availability. Let him know that it may be challenging to get [place] to auth him for acute inpatient rehab, as it has been at times,. Mentioned fdc as well, but is wanting inpatient acute rehab if he needs it. Will see how he does with P.T. and speech today. Called Natalia at [facility]. She has beds, they are expecting 4 discharges. Let her know that as soon as all disciplines are in for therapy, will have ROSA Lozada paperhanger assistant, fax her over referral, including H&P, med sheets, face sheet. She is aware he is [place], and knows that getting the auth may be challenging. P: DCP to work on a discharge plan. Will sent [facility] the referral as soon as therapy notes are, and will sent to [place] as well. Will also see how he does with P.T. Viky Castelan RN/Solution Strategist Discharge Planning/Care Management Discharge Assessment Start: 09/01/22 10:49 Freq: Status: Active Protocol: Document 09/01/22 10:49 (Rec: 09/01/22 10:51 [id number]) Discharge Planning Assessment Assigned Vending Machine Refiller Viky Castelan RN/Solution Strategist Advance Directives? Yes Advance Directives on File No History Provided By Patient,Medical Record Prior Living Arrangements House Household Members spouse Type of transporation used prior to Drives own vehicle admit Independent with ADL's Yes Is patient alert and oriented? Yes Caregiver for Another No Barriers to Discharge Yes Comment Attempting to get patient in to acute inpatient rehab, has [facility], has denied in the past , but will attempt. Discharge Plan Inpatient Rehab Unit Transportation Arrangement Family, or may need to set up a wheelchair transport if needed, will need to see how he does with P.T. Referrals Initiated Other Additional Comment [facility], and [facility]. Whiteboard Updated in Patient Room with Yes name and ext. # of Vending Machine Refiller Review Status In Process Next Review Type Continued Stay Review
[2022-09-01 11:45] LABS: Troponin I < 0.012 ng/mL (0.01-0.034)
--- NOTE | 2022-09-01 12:00 | PM.PN.1 ---
Subjective Subjective Interval history: 72 year old male with history of CVA with left-hand and lower extremity deficit 28 years ago, chilblains, HTN, HLD, RtBBB, RT carotid occulsion, PMR who presented to the ED following weakness in his lower extremities yesterday, woke up on morning of admission with right hand numbness and dysfunction was brought into the ED. Pt notes significant weakness in bilateral UE and LE. The right deficits are new. The left deficits are chronic but sig worse from baseline. Also numbness in rt hand is new. Denies SUNSHINE, change in vision, diff swallowing. MRI did not show acute CVA (which was personally reviewed for with radiologist). Initial blood pressures were severely elevated and coming down on its own. Exam Vital Signs (past 8 hours): - 09/01/22 04:30 09/01/22 09:00 Temperature 97.4 F L 97.6 F Pulse Rate 76 73 Respiratory Rate 19 16 Blood Pressure 129/58 L 162/90 H Pulse Oximetry 96 97 Oxygen Flow Rate 0 0 Oxygen Delivery Method Room Air Oxygen Flow Rate 0 Narrative Exam Narrative: Gen: alert, pleasant, cooperative male HEENT: pupils equal and reactive, EOMI CV: reular rhythm Ext: no edema Neuro: fully oriented, mentally clear, speech fluent w/o aphasia, no facial droop, RUE 3/5 (distal & prox), LUE prox 3/5, LUE distal 4/5), RLE 2/5 (prox), LLE 2/5 (prox), dec light touch rt hand, very abnl F to N bilaterally Objective Labs 09/01/22 04:50 09/01/22 04:50 Labs: Laboratory Results - last 24 hr 08/31/22 08/31/22 08/31/22 18:13 18:13 18:13 WBC 9.3 RBC 4.97 Hgb 15.0 Hct 44.1 MCV 88.8 MCH 30.3 MCHC 34.1 RDW 14.3 Plt Count 226 Neut % (Auto) 58.3 Lymph % (Auto) 29.7 Dickey % (Auto) 10.2 Eos % (Auto) 1.2 L Baso % (Auto) 0.6 Neut # (Auto) 5500 Lymph # (Auto) 2800 Dickey # (Auto) 1000 H Eos # (Auto) 100 Baso # (Auto) 100 PT 11.9 INR 1.0 APTT 37 H Sodium 139 Potassium 3.6 Chloride 106 Carbon Dioxide 19 L BUN 13 Creatinine 0.93 Estimated GFR > 60 BUN/Creatinine Ratio 14.0 Glucose 88 Calcium 9.1 Magnesium 2.0 Total Bilirubin 0.6 AST 54 ALT 23 Alkaline Phosphatase 93 Total Creatine Kinase 195 H CK-MB (CK-2) TNP CK-MB (CK-2) Rel Index TNP Troponin I < 0.012 NT-Pro-B Natriuret Pep Total Protein 7.7 Albumin 4.7 Globulin 3.0 Albumin/Globulin Ratio 1.6 Lipase 74 TSH Urine Color Urine Appearance Urine pH Ur Specific [place] Urine Protein Urine Glucose (UA) Urine Ketones Urine Occult Blood Urine Nitrate Urine Bilirubin Urine Urobilinogen Ur Leukocyte Esterase Urine RBC Urine WBC Ur Squamous Epith Cells Urine Bacteria Ur Culture Indicated? Micro UA Comment 08/31/22 08/31/22 08/31/22 18:13 18:13 18:13 WBC RBC Hgb Hct MCV MCH MCHC RDW Plt Count Neut % (Auto) Lymph % (Auto) Dickey % (Auto) Eos % (Auto) Baso % (Auto) Neut # (Auto) Lymph # (Auto) Dickey # (Auto) Eos # (Auto) Baso # (Auto) PT INR APTT Sodium Potassium Chloride Carbon Dioxide BUN Creatinine Estimated GFR BUN/Creatinine Ratio Glucose Calcium Magnesium 2.1 Total Bilirubin AST ALT Alkaline Phosphatase Total Creatine Kinase CK-MB (CK-2) CK-MB (CK-2) Rel Index Troponin I NT-Pro-B Natriuret Pep 121 Total Protein Albumin Globulin Albumin/Globulin Ratio Lipase TSH 2.24 Urine Color Urine Appearance Urine pH Ur Specific [place] Urine Protein Urine Glucose (UA) Urine Ketones Urine Occult Blood Urine Nitrate Urine Bilirubin Urine Urobilinogen Ur Leukocyte Esterase Urine RBC Urine WBC Ur Squamous Epith Cells Urine Bacteria Ur Culture Indicated? Micro UA Comment 08/31/22 09/01/22 09/01/22 21:30 04:50 04:50 WBC 7.3 RBC 4.69 Hgb 14.3 Hct 41.6 MCV 88.7 MCH 30.5 MCHC 34.3 RDW 14.7 Plt Count 209 Neut % (Auto) 61.0 Lymph % (Auto) 28.8 Dickey % (Auto) 7.9 Eos % (Auto) 1.9 L Baso % (Auto) 0.4 Neut # (Auto) 4400 Lymph # (Auto) 2100 Dickey # (Auto) 600 Eos # (Auto) 100 Baso # (Auto) 0 PT 13.0 H INR 1.1 APTT Sodium Potassium Chloride Carbon Dioxide BUN Creatinine Estimated GFR BUN/Creatinine Ratio Glucose Calcium Magnesium Total Bilirubin AST ALT Alkaline Phosphatase Total Creatine Kinase CK-MB (CK-2) CK-MB (CK-2) Rel Index Troponin I NT-Pro-B Natriuret Pep Total Protein Albumin Globulin Albumin/Globulin Ratio Lipase TSH Urine Color Yellow Urine Appearance Clear Urine pH 5.5 Ur Specific [place] 1.010 Urine Protein Negative Urine Glucose (UA) Negative Urine Ketones Negative Urine Occult Blood Negative Urine Nitrate Negative Urine Bilirubin Negative Urine Urobilinogen 0.2 Ur Leukocyte Esterase Negative Urine RBC None seen Urine WBC None seen Ur Squamous Epith Cells 0-1 /hpf Urine Bacteria None seen Ur Culture Indicated? Cult not indicated Micro UA Comment Microscopic normal 09/01/22 09/01/22 09/01/22 04:50 04:50 11:10 WBC RBC Hgb Hct MCV MCH MCHC RDW Plt Count Neut % (Auto) Lymph % (Auto) Dickey % (Auto) Eos % (Auto) Baso % (Auto) Neut # (Auto) Lymph # (Auto) Dickey # (Auto) Eos # (Auto) Baso # (Auto) PT INR APTT Sodium 137 Potassium 3.3 L Chloride 107 Carbon Dioxide 23 BUN 14 Creatinine 0.89 Estimated GFR > 60 BUN/Creatinine Ratio 15.7 Glucose 117 H Calcium 8.6 Magnesium Total Bilirubin AST ALT Alkaline Phosphatase Total Creatine Kinase CK-MB (CK-2) CK-MB (CK-2) Rel Index Troponin I < 0.012 < 0.012 NT-Pro-B Natriuret Pep Total Protein Albumin Globulin Albumin/Globulin Ratio Lipase TSH Urine Color Urine Appearance Urine pH Ur Specific [place] Urine Protein Urine Glucose (UA) Urine Ketones Urine Occult Blood Urine Nitrate Urine Bilirubin Urine Urobilinogen Ur Leukocyte Esterase Urine RBC Urine WBC Ur Squamous Epith Cells Urine Bacteria Ur Culture Indicated? Micro UA Comment [facility] Medical History (Updated 08/31/22 @ 21:23 by JASSON Silva) History of cerebrovascular accident (CVA) with residual deficit Hyperlipemia Hypertension PMR (polymyalgia rheumatica) Surgical History (Updated 08/31/22 @ 21:23 by JASSON Silva) History of prostatectomy Family History (Updated 08/31/22 @ 23:01 by Joleen Maik [facility]) Father Rheumatoid arthritis Mother Diabetes mellitus Social History (Updated 08/31/22 @ 23:02 by Joleen Maki [facility]) marital status: household members: spouse lives independently: Yes caregiver/support person: No housing: house current occupational exposures/hazards: No Smoking Status: Never smoker alcohol intake: current substance use type: does not use Assessment & Plan Assessment & Plan narrative: 1. Acute CVA with bilateral deficits, undetermined ischemic lacunar vs embolic -new prox & distal Rt deficits, worsened Lt deficits from remote prior CVA -ddx includes PMR exacerbation, vasculitis but exam and presentation more c/w acute CVA -brain MRI old right parietal CVA, chronic small vessel ischemic dz, no acute CVA (findings confirmed with second look by radiologist) -CTA chronic distal rt ICA occlusion, reconst at [place] of [place], 50% narrowing lt ICA -ECHO mod conc LVH, EF 60-65%, mild thickened MV w/o stenosis/regurg -cont permissive HTN -ASA 81 daily, clopidogrel 75 daily --dual anti-platelet x 4 wk then consider dropping ASA -atorvastatin 80 HS -PT/OT eval -pt prev well functioning, mentally intact and is good candidate for acute rehab 2. Hypertension, chronic -allow permissive HTN -resume lisinopril 10 mg daily on 09/02 3. Polymyalgia rheumatica, chronic -diagnosed > 1 yr ago and followed by spreader operator -cont prednisone 1 mg daily (pt has been on this dose for over a month) -he missed 2 doses earlier this week due to travel but seems unlikely current deficits are due to PMR -no SUNSHINE or vision changes -check ESR, CRP Admit: acute inpatient DVT prophylaxis: Lovenox Surrogate decision maker: spouse Quality VTE Deep Vein Thrombosis/Pulmonary Embolism Present on Admission: No
[2022-09-01] MEDS: prednisoLONE Syrup 15 MG/5 ML PO (12:16)
--- NOTE | 2022-09-01 12:19 | ST.IPIE ---
Visit Care Team Role Provider Type Doctor MD Vickie Primary Care Provider Non-Staff Specialty: Medical Address: Phone: Fax: Email: Keisha Figueroa DO Emergency Provider Physician Specialty: Emergency Medicine Address: [address] [place] [address], [facility] Email: [email or web address] Silva Admit Provider Physician Attending Provider Specialty: Hospitalist Internal Medicine Address: [address] [place] [address], [id number] Email: Past Medical History (Last Updated 08/31/22 @ 21:23 by JASSON Silva) History of cerebrovascular accident (CVA) with residual deficit (Medical) Left sided deficit Hyperlipemia (Medical) Hypertension (Medical) PMR (polymyalgia rheumatica) (Medical) ST IP Initial Evaluation Report COUNTER MAKER Adult Cognitive Linguistic Eval Start: 09/01/22 11:56 Freq: Status: Active Protocol: Document 09/01/22 11:56 CG (Rec: 09/01/22 12:18 CG [id number]) Adult Cognitive Linguistic Evaluation Session Time Visit Start Time 11:53 Visit Stop Time 12:08 Total Visit Minutes 15 Visit Information Visit Number 1 Referral Referring Provider JASSON Silva Reason for Referral CVA Setting Assessment Location Acute Care Visit Type Note Type Initial evaluation Next Note Type Next Note Type Discharge Summary Patient Information Identification Type Name,Wristband Patient History Per H&P: Joselyn Chandler is a delightful 72 year old male with history of CVA with left- hand and lower extremity deficit 28 years ago, chilblains, HTN, HLD, RtBBB, RT carotid occulsion, PMR who presented to the ED following weakness in his lower extremities yesterday, woke up this morning with right hand numbness and dysfunction was brought into the ED. ?He denies any numbness or tingling in that leg, headache , denies vision changes, difficulty with swallowing.? No facial droop noted.? No difficulty with speech.? No fevers, body aches or chills, chest pain, shortness of breath, irregular heartbeats or palpitations, lower extremity edema, nausea, vomiting, abd pain, no issues with bowel movements or urination, vertigo symptoms, no recent illness injury or trauma. Patient reports that he is not had an echo/stess test more than 10 years, and last neck MRI/carotid Doppler was approximately 3 years ago. Patient states that he normally takes an aspirin 81 mg, lovastatin 10 mg, lisinopril 5 mg prednisone 1 mg. He took 650 mg total of aspirin today at noon. No tobacco, half alcoholic beer daily, no illicit.? Patient's primary care just retired but he is seen through [facility] and [place].? Patient initially presented to the ED PE 202/91 was given 10 mg labetalol area. Patient was evaluated by tele stroke recommended permissive SBP up too 220, pigment was not a candidate for tPA. On admit patient notes that right hand numbness/tingling continues BP 163/75, 97, 23, 97% on room air. Patient's laboratory findings are unremarkable the exception of bicarb 19, CK 195, initial troponin was negative. Chest x-ray negative, EKG rate of 85 with a right bundle-branch block and frequent PVCs. Head CT no ale acute abnormalities it did demonstrate remote right MCA territorial infarct with volume loss and encephalomalacia, with associated ex vaco dilation of right lateral ventricle. And CTA H/N:The right ICA is occluded at the cervical segment.?Reconstitution of contrast at the [place].? A 2015 MRA report mentions also right ICA occlusion at the level of the carotid bulb.? There is evidence of an old infarction in the right MCA territory.? The right MCA is smaller than the left, also likely chronic. Patient is admitted for observation for CVA. Education Level Bachelor's Hearing Hearing Level Normal Subjective Patient Report Pt is alert and oriented sitting partially reclined in bed with his at bedside. He was able to follow all directions, pleasant, and cooperative with all COUNTER MAKER assessment. Mental Status Alert,Responsive,Cooperative Assessment Oral Motor Examination Completed No: Oral motor structure and function appear grossly intact for speech/swallow Informal Assessment Receptive Language Normal Yes Expressive Language Normal Yes Pragmatic Language Normal Yes Speech Normal Yes Cognition Normal Yes Formal Assessment Standardized Test/Screener Type [facility] Mental Status (UMS) Administration Complete Results Pt was given the [facility] Mental Status Examination. Clock drawing task was completed with pt pointing to placement of hour markers on clock face rather than drawing due to hand mobility deficits. He scored a 28/30, which is indicative of normal cognition according to the authors of the SLUMS. Findings/Results Language Function Within normal limits Cognitive Function Within functional limits Findings Pt scores WFL on cognitive screener (SLUMS). However, based on recent CVA, cognition should continue to be monitored for changes. Prognosis Prognosis Good Based on Cognitive status,Family support Comment Pt's spouse is supportive. Pt is engaged with tx. Plan of Care Speech-Language Treatment No Patient/Caregiver Education Described results of evaluation,Patient expressed understanding of evaluation, Family/caregivers expressed understanding of evaluation Discharge Recommendations Inpatient rehab facility
[2022-09-01 13:00] VITALS: BP 167/83; PULSE 84; RESP 17; TEMP 36.6; O2SAT 96
--- NOTE | 2022-09-01 14:23 | DI.RAD.S_ITS ---
PROCEDURE: FL FLUOROSCOPY <1HR COMPARISON: [facility], MR, MR HEAD/BRAIN WO CON, 09/01/2022, 7:14. INDICATIONS: 1 view L-spine for needle placement FINDINGS: Fluoro guided lumbar control was attempted and was unsuccessful. IMPRESSION: Attempted lumbar puncture. Dictated by: Yariel Still M.D. on 09/01/2022 at 16:27 Approved by: Yariel Still M.D. on 09/01/2022 at 16:29
--- NOTE | 2022-09-01 14:42 | PT.IIE ---
Current Diagnoses Cerebral infarction, unspecified (08/31/22) Surgical History (Last Updated 08/31/22 @ 21:23 [facility] History of prostatectomy Medical History (Last Updated 08/31/22 @ 21:23 [facility] History of cerebrovascular accident (CVA) with residual deficit Hyperlipemia Hypertension PMR (polymyalgia rheumatica) Physical Therapy Inpatient Evaluation/Re-Eval M1 PT/OT-IP Prior Functional Status Start: 09/01/22 11:03 Freq: NEEDED Status: Active Protocol: Document 09/01/22 14:08 ES (Rec: 09/01/22 14:42 ES [id number]) Medical Review Prior Functional Status Medical History Reviewed Yes Communication Pt is an effective verbal communicator. Mobility and Gait Pt was IND in all mobility without AD at baseline. 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 Social History Household Members spouse Living Arrangements House Number of Floors (Floors) Two Floors Number of Stairs To Enter/Railing? Pt has 1 step to enter and then can stay on the main level of his home. Home Environment Standard Height Toilet,Walk in Shower Employment Status Retired Additional Social History Comment Pt has no DME and has a flat bed. M2 PT-IP Current Condition Start: 09/01/22 14:07 Freq: NEEDED Status: Active Protocol: Document 09/01/22 14:08 ES (Rec: 09/01/22 14:42 ES [id number]) Physical Therapy Current Condition Current Condition Evaluation Date 09/01/22 Treatment Diagnosis CVA Onset Date 08/31/22 M3 PT-IP Subjective Start: 09/01/22 14:07 Freq: NEEDED Status: Active Protocol: Document 09/01/22 14:08 ES (Rec: 09/01/22 14:42 ES [id number]) Subjective Physical Therapy Visit Type Type Initial Evaluation Visit Start Time 13:21 Visit Stop Time 13:53 Total Visit Minutes 32 Physical Therapy Visit Comments Patient Comments Patient alert in bed, reported that he is having more trouble moving his L side now than he was a couple hours ago . Would like to get out of bed . Is hoping he can get into acute rehab. Patient Goals To be able to move easier. Therapy Pain Assessment Pain Present Pain Present Denied Pain M4 PT-IP Mobility and Gait Start: 09/01/22 14:07 Freq: NEEDED Status: Active Protocol: Document 09/01/22 14:08 ES (Rec: 09/01/22 14:42 ES [id number]) PT-Bed Mobility Assessment Rolling Type of Rolling Bilateral Level of Assist Moderate Assistance,1 Person Assistance Scooting Scooting Up and Down in Bed Maximum Assistance PT-Transfer Assessment Equipment Transfer Assistive Device Mechanical Lift Transfers Transfer Destination Chair Transfer Technique Mechanical Lift Comments Mobility Comments Performed rolling B using rail with therapist assist to place hands, assist with heel slide to position, and assist to move LE's side to side. STS /pivot transfers not appropriate due to current level of weakness. Overhead lift used to transfer bed to recliner. Gait Assessment Comments Gait Comments Unable PT-Balance Assessment Sitting Balance and Reactions Static Sitting Balance Ability Fair Dynamic Sitting Balance Ability Fair Comments Other Balance Tests/Deviations/Treatment Able to sit upright in chair : with feet on floor without UE support and no trunk support without LOB and hold midline against min resistance. M5 PT-IP Objective Assessments Start: 09/01/22 14:07 Freq: NEEDED Status: Active Protocol: Document 09/01/22 14:08 ES (Rec: 09/01/22 14:42 ES [id number]) Orientation Orientation/Cognition Level of Alertness Alert Orientation Name,Age,Birthday,Month,Date, Year,Day of Week,Place, Situation Language Function Ability No Deficits Noted Safety Awareness Understands Safety Issues Memory Description No Deficits Noted Gross Range of Motion Upper Extremity ROM Impairments Stiffness noted in B hands, otherwise passive motion WFL Lower Extremity ROM Impairments Passive motion WFL Strength Upper Extremity Strength Assessment Bilaterally Impaired Shoulder 2+/5 B Elbow 2+ R, 3-/5 L Wrist 3-/5 B Hand Reinsurance Claim Analyst 3-/5 Lower Extremity Strength Assessment Bilaterally Impaired Hip 3-/5 B Knee 3-/5 B Ankle 3+/5 B Coordination Assessment Gross Coordination Gross Coordination Impaired Assessment Coordination Comments Difficult to test due to weakness B UE/LE. Decreased accuracy and control noted with movements such as manipulating call button with either hand. Sensation Assessment Sensation Gross Sensation Left UE Impaired,Left LE Impaired Light Touch Impaired Sensation Description Numbness Comments Sensation Comments Absent light tough sensation in L hand and foot. Impaired light touch throughout LUE and LLE. M7 PT-IP Assessment and Plan Start: 09/01/22 14:07 Freq: NEEDED Status: Active Protocol: Document 09/01/22 14:08 ES (Rec: 09/01/22 14:42 ES [id number]) PT Summary Assessment and Plan Potential Rehabilitation Potential Good Status of Condition at Evaluation Evolving Summary Impairments Strength,Balance,Coordination, Sensation,Bed Mobility, Transfers,Gait Assessment Summary Patient is a 72 year old male who presents with severe mobility deficits due to global weakness and impaired coordination BUE and BLE. MD was notified upon completion of eval of progression of weakness seen during eval and reported by patient since this morning. He demonstrates clear mentation and normal cognition, was cooperative and followed multi-step commands. He required mod A for rolling to be able to don overhead lift sling. He was not appropriate to perform standing/transfer due to B extremity weakness. He tolerated ceiling lift transfer without problem. He will benefit from further skilled therapy to address strength and balance impairement in order to increase independence with functional mobility. He is highly motivated, had a high level of prior function, and has a stable discharge situation; therefore he would be an excellent candidate for acute rehab. Goals Bed Mobility Goal Independent Transfer Goal Contact Guard Assistance,Front Wheeled Walker Gait Goal Contact Guard Assistance,Front Wheel Walker Gait Distance 150 ft Other Goals Patient will be able to ascend /descend 1 stair with FWW with CGA. Days to Meet Goals 7 Frequency of Treatment Frequency Of Treatment Twice a Day Treatment Plan Physical Therapy Treatment Plan Bed Mobility Training,Transfer Training,Gait Training, Therapeutic Exercise,Balance Retraining,Discharge Planning, Neuromuscular Re-ed, Coordination Retraining Precautions Other Precautions Fall risk Recommendations To Nursing Amount of Assist Needed 1 Person Assist,Mechanical Lift Discharge Recommendations PT Discharge Recommendations Acute Rehab Equipment Needed for Home Before TBD depending on progress Discharge Transportation Needs at Discharge Wheelchair/Cabulance
--- NOTE | 2022-09-01 15:28 | DI.RAD.S_ITS ---
PROCEDURE: XR LUMBAR SPINE 2-3V INDICATIONS: eval lumbar spine TECHNIQUE: 3 views of the lumbar spine were acquired. COMPARISON: None. FINDINGS: Bones: 5 hap-qpg-ybokfwa vertebrae are present. There is normal bony alignment. No vertebral body compression fractures. No suspicious bony lesions. Diffuse degenerative disc disease, plsroaus-qz-qgfmxm at L2-L3, L3-L4 and L4-L5, fvea-jx-[id number] at T12-L1, L1-L2, and L5-S1. Moderate to severe facet arthropathy at L3-L4, L4-L5 and L5-S1. Soft tissues: Overlying bowel gas pattern is normal. No suspicious soft tissue calcifications. IMPRESSION: Moderate to severe degenerative disc and facet disease in lumbar spine. Dictated by: Yariel Still M.D. on 09/01/2022 at 15:53 Approved by: Yariel Still M.D. on 09/01/2022 at 15:59
[2022-09-01 16:32] LABS: C-Reactive Protein Quant 0.7 mg/dL (<1.0)
[2022-09-01 16:43] LABS: Erythrocyte Sedimentation Rate 1 MM/HR (0-15)
[2022-09-01 19:30] VITALS: BP 183/94; PULSE 72; RESP 18; TEMP 36.6; O2SAT 96
[2022-09-01] MEDS: SENNOSIDES 8.6 MG TABLET 17.2 MG PO (21:52)
[2022-09-01] MEDS: ATORVASTATIN 20 MG TABLET 80 MG PO (21:52)
[2022-09-02] VITALS (8 sets, daily range): BP systolic 163–189; BP diastolic 94–118; PULSE 65–72; RESP 18–20; TEMP 36.2–36.6; O2SAT 95–98
[2022-09-02] MEDS: diphenhydrAMINE 25 MG TABLET PO (00:39)
[2022-09-02] MEDS: ACETAMINOPHEN 325 MG TABLET 650 MG PO (00:39)
[2022-09-02 01:36] LABS: Labcorp Hemoglobin (Hb) A1c 5.6 % (4.8-5.6)
[2022-09-02 06:12] LABS: Add Manual Diff / Slide Review NO; Basophils Absolute Auto 0 /uL (0-100); Basophils Percent Auto 0.2 % (0-2); Eosinophils Absolute Auto 100 /uL (0-450); Eosinophils Percent Auto 1.6 % (2-4); Hematocrit 45.4 % (41-53); Hemoglobin 15.7 g/dL (13.5-17.5); Lymphocytes Absolute Auto 1800 /uL (1100-4500); Mean Corpuscular HGB Conc 34.5 % (30-36); Mean Corpuscular Hemoglobin 30.7 PG (26-34); Monocytes Absolute Auto 700 /uL (0-900); Monocytes Percent Auto 8.7 % (3-14); Neutrophils Absolute Auto 5400 /uL (1500-7000); Neutrophils Percent Auto 67.5 % (50-75); Platelet Count 208 X10^3/uL (150-400); Red Cell Distribution Width 14.7 % (11.6-14.8)
[2022-09-02 06:15] LABS: BUN Creatinine Ratio 20.3 (6-22); Blood Urea Nitrogen 15 mg/dL (9-20); Calcium 8.9 mg/dL (8.4-10.2); Carbon Dioxide 22 mmol/L (22-32); Chloride 104 mmol/L (98-107); Estimated Glomerular Filt Rate > 60 mL/min (>60); Glucose 112 mg/dL (80-110); HEMOLYSIS < 15 (0-50); Potassium 3.8 mmol/L (3.4-5.1); Sodium 134 mmol/L (137-145)
[2022-09-02] MEDS: lisinopriL 10 MG TABLET PO (08:28)
[2022-09-02] MEDS: PREDNISONE 1 MG TAB 1 EACH PO (08:29)
[2022-09-02] MEDS: ENOXAPARIN 40 MG/0.4 ML SYRINGE SUBCUT (08:29)
[2022-09-02] MEDS: CLOPIDOGREL 75 MG TABLET PO (08:29)
[2022-09-02] MEDS: ASPIRIN EC 81 MG TABLET PO (08:29)
[2022-09-02] MEDS: LABETALOL 20 MG/4 ML SYRINGE 10 MG IV ×2 (09:57→14:15)
[2022-09-02] MEDS: IMMUNE GLOBUL IV (11:07)
[2022-09-02] MEDS: GLY IV (11:07)
[2022-09-02] MEDS: IGA AVG IV (11:07)
[2022-09-02] MEDS: ISOOSMOTIC VEHICLE IV (11:07)
--- NOTE | 2022-09-02 12:05 | PM.DS.1 ---
History of Present Illness History of Present Illness Date Patient Seen: 08/31/22 Time Patient Seen: 21:09 Chief complaint: CVA Narrative: Joselyn Chandler is a delightful 72 year old male with history of CVA with left-hand and lower extremity deficit 28 years ago, chilblains, HTN, HLD, RtBBB, RT carotid occulsion, PMR who presented to the ED following weakness in his lower extremities yesterday, woke up this morning with right hand numbness and dysfunction was brought into the ED. ?He denies any numbness or tingling in that leg, headache, denies vision changes, difficulty with swallowing.? No facial droop noted.? No difficulty with speech.? No fevers, body aches or chills, chest pain, shortness of breath, irregular heartbeats or palpitations, lower extremity edema, nausea, vomiting, abd pain, no issues with bowel movements or urination, vertigo symptoms, no recent illness injury or trauma. Patient reports that he is not had an echo/stess test more than 10 years, and last neck MRI/carotid Doppler was approximately 3 years ago. Patient states that he normally takes an aspirin 81 mg, lovastatin 10 mg, lisinopril 5 mg prednisone 1 mg. He took 650 mg total of aspirin today at noon. No tobacco, half alcoholic beer daily, no illicit.? Patient's primary care just retired but he is seen through [facility] and [place].? Patient initially presented to the ED PE 202/91 was given 10 mg labetalol area. Patient was evaluated by tele stroke recommended permissive SBP up too 220, pigment was not a candidate for tPA. On admit patient notes that right hand numbness/tingling continues BP 163/75, 97, 23, 97% on room air. Patient's laboratory findings are unremarkable the exception of bicarb 19, CK 195, initial troponin was negative. Chest x-ray negative, EKG rate of 85 with a right bundle-branch block and frequent PVCs. Head CT no ale acute abnormalities it did demonstrate remote right MCA territorial infarct with volume loss and encephalomalacia, with associated ex vaco dilation of right lateral ventricle. And CTA H/N:The right ICA is occluded at the cervical segment.?Reconstitution of contrast at the [place].? A 2015 MRA report mentions also right ICA occlusion at the level of the carotid bulb.? There is evidence of an old infarction in the right MCA territory.? The right MCA is smaller than the left, also likely chronic. Patient is admitted for observation for CVA. Addendum: Additionally considered diagnosis of Guillain barre syndrome in patient presenting with acute bilateral lower and upper extremity weakness of severe nature. His deep tendon reflexes are absent c/w Guillain barre. Fluoroscopy guided LP was attempted x 2 by radiologist without success. Pt noted to have significant facet arthropathy on x-ray. Will initiate process thru pt's insurance [employer] to transfer pt to other facility where he can get neurology urgent consultation. 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 Multiple LP attempts by IR fluoroscopy were unsuccessful. -due to high suspicion for GBS, started IVIG 0.4mg/kg and transferred to [facility] for neurology consultation -brain MRI old right parietal CVA, chronic small vessel ischemic dz, no acute CVA (findings confirmed with second look by radiologist) -CTA chronic distal rt ICA occlusion, reconst at [place] of carias, 50% narrowing lt ICA -ECHO mod conc LVH, EF 60-65%, mild thickened MV w/o stenosis/regurg -PT/OT eval rec acute rehab 2. Hypertension, chronic -resumed lisinopril 10 mg daily on 09/02 3. Polymyalgia rheumatica, chronic -diagnosed > 1 yr ago and followed by divinity teacher -cont prednisone 1 mg daily (pt has been on this dose for over a month) -he missed 2 doses earlier this week due to travel but seems unlikely current deficits are due to PMR -no SUNSHINE or vision changes -ESR 1, CRP 0.7 4. HLD, chronic -hold statin due to potential myopathy Hospital Course: See above problem list. Time Spent with Patient Time spent: Greater than 30 minutes Exam Vital Signs (past 8 hours): - 09/02/22 05:51 09/02/22 08:21 09/02/22 08:28 Temperature 97.6 F 97.2 F L Pulse Rate 71 70 69 Respiratory Rate 18 20 Blood Pressure 183/94 H 185/95 H 187/108 H Pulse Oximetry 95 97 Oxygen Flow Rate 0 0 09/02/22 09:57 09/02/22 10:30 Temperature Pulse Rate 69 Respiratory Rate Blood Pressure 182/118 H 179/94 H Pulse Oximetry Oxygen Flow Rate Oxygen Delivery Method Room Air Oxygen Flow Rate 0 Narrative Exam Narrative: Gen: alert, pleasant, cooperative male, A/Ox4 HEENT: pupils equal and reactive, EOMI CV: regular rate and rhythm Ext: no edema Neuro: fully oriented, mentally clear, speech fluent w/o aphasia, no facial droop, RUE 2/5 (distal & prox), LUE prox (3/5), LUE distal (2/5), RLE 2/5 (prox), LLE 2/5 (prox), dec light touch rt hand, DTR 0-1 in upper and lower extremities Objective Labs 09/02/22 05:25 09/02/22 05:25 Labs: Laboratory Results - last 24 hr 08/31/22 09/01/22 09/01/22 18:13 04:50 11:10 WBC RBC Hgb Hct MCV MCH MCHC RDW Plt Count Neut % (Auto) Lymph % (Auto) [place] % (Auto) Eos % (Auto) Baso % (Auto) Neut # (Auto) Lymph # (Auto) [place] # (Auto) Eos # (Auto) Baso # (Auto) ESR 1 Sodium Potassium Chloride Carbon Dioxide BUN Creatinine Estimated GFR BUN/Creatinine Ratio Glucose Hgb A1c (Ref Lab) 5.6 Calcium C-Reactive Protein 0.7 09/02/22 09/02/22 05:25 05:25 WBC 8.0 RBC 5.10 Hgb 15.7 Hct 45.4 MCV 89.0 MCH 30.7 MCHC 34.5 RDW 14.7 Plt Count 208 Neut % (Auto) 67.5 Lymph % (Auto) 22.0 L [place] % (Auto) 8.7 Eos % (Auto) 1.6 L Baso % (Auto) 0.2 Neut # (Auto) 5400 Lymph # (Auto) 1800 [place] # (Auto) 700 Eos # (Auto) 100 Baso # (Auto) 0 ESR Sodium 134 L Potassium 3.8 Chloride 104 Carbon Dioxide 22 BUN 15 Creatinine 0.74 Estimated GFR > 60 BUN/Creatinine Ratio 20.3 Glucose 112 H Hgb A1c (Ref Lab) Calcium 8.9 C-Reactive Protein [facility] Medical History (Updated 08/31/22 @ 21:23 by SPENCER Silva-) History of cerebrovascular accident (CVA) with residual deficit Hyperlipemia Hypertension PMR (polymyalgia rheumatica) Surgical History (Updated 08/31/22 @ 21:23 by SPENCER Silva-VADIM) History of prostatectomy Family History (Updated 08/31/22 @ 23:01 by SPENCER Silva-VADIM) Father Rheumatoid arthritis Mother Diabetes mellitus Social History (Updated 08/31/22 @ 23:02 by SPENCER Silva-VADIM) marital status: household members: spouse lives independently: Yes caregiver/support person: No housing: house current occupational exposures/hazards: No Smoking Status: Never smoker alcohol intake: current substance use type: does not use Discharge Plan Discharge Plan Patient Disposition: er [facility] Discharge Data Primary Care Provider: Miscellaneous,Doctor Quality VTE Deep Vein Thrombosis/Pulmonary Embolism Present on Admission: No
--- NOTE | 2022-09-02 14:06 | CM.DPNOTE ---
Discharge Planning Note: Doctor recommended that patient needs higher level of care for neurology consult/workup and has been on tf list since this morning. [facility] able to accept and patient will transfer at 2:05 pm. Meliza Angulo RN/RIVERAP
== END 2022-09-02 14:40 | disposition short-term general hospital (02) | DRG 95 ==
LOC: ED 20:51 → AC 21:25
PROVIDERS: Internal Medicine; Admitting Provider Nurse Practitioner Family; Emergency Provider Emergency Medicine; Visit Provider Nurse Practitioner Family
DX: G61.0 Guillain-Barre syndrome (principal); I69.954 Hemiplegia and hemiparesis following unspecified cerebrovascular disease affecting left non-dominant side; M35.3 Polymyalgia rheumatica; I16.0 Hypertensive urgency; I10 Essential (primary) hypertension; E78.5 Hyperlipidemia, unspecified; Z20.822 Contact with and (suspected) exposure to COVID-19
CPT/HCPCS: 36415; 70450; 70496; 70498; 70551; 71045; 72100; 76000; 80048; 80053; 81001; 81003; 82550; 82962; 83036; 83690; 83735; 83880; 84443; 84484; 85025; 85610; 85651; 85730; 86140; 92523; 93005; 93010; 93306; 96374; 97163; 97167; 97530; 99285; J1568; J1650; Q9967